=== PATIENT | male | born 1975 | race Caucasian/White ===

== ENCOUNTER → 2016-03-17 | Outpatient (REF) ==
[~2016-03-17] MED LIST: NORCO 325 MG-51 TAB PO; ZESTRIL 20MG TA20 MG PO; ZOCOR 40MG40 MG PO
== END ==
LOC: WSOH 12:16
DX: Z11.1 Encounter for screening for respiratory tuberculosis (principal)

== ENCOUNTER → 2016-04-02 | Outpatient (REF) | LOC: WSOH 08:03 | DX: Z00.00 Encounter for general adult medical examination without abnormal findings (principal) ==

== ENCOUNTER 2016-11-10 21:26 | Emergency (ER) | payer OTHER ==
[~2016-11-10] VITALS: Ht 193 cm; Wt 104.5 kg
[2016-11-10 21:28] VITALS: BP 140/88; TEMP 98.7
[2016-11-10] MEDS ORDERED: LIPITOR20 MG PO (21:31)
[2016-11-10] MEDS ORDERED: NORCO 325 MG-51 TAB PO (22:13)
[2016-11-10 22:41] VITALS: PULSE 82
== END 2016-11-10 22:43 | disposition home or self-care (01) ==
LOC: COL.ER 21:26
DX: M76.72 Peroneal tendinitis, left leg (principal); I10 Essential (primary) hypertension; E78.5 Hyperlipidemia, unspecified